=== PATIENT | male | born 1980 | race Caucasian/White ===

== ENCOUNTER 2018-05-15 13:38 | Emergency (ER) | payer SELFPAY | END 2018-05-15 13:50 | disposition left against medical advice (07) | LOC: ER 13:38 | DX: Z53.21 Procedure and treatment not carried out due to patient leaving prior to being seen by health care provider (principal) ==

== ENCOUNTER 2019-10-19 19:45 | Emergency (ER) | payer OTHER ==
[2019-10-19] MEDS ORDERED: ACETAMINOPHEN 325 MG TABLET PO ONE (20:42)
[2019-10-19] MEDS ORDERED: NORMAL SALINE 1000 ML 1,000 ML IV ONE (20:50)
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
[2019-10-19 21:27] LABS: ABSOLUTE BASOPHILS # (AUTO) 0.1 10^3/uL (0.0-0.2); ABSOLUTE EOSINOPHILS # (AUTO) 0.2 10^3/uL (0.0-0.6); ABSOLUTE LYMPHOCYTES (AUTO) 3.1 10^3/uL (0.5-4.7); ABSOLUTE MONOCYTES (AUTO) 1.7 10^3/uL (0.1-1.4); ABSOLUTE NEUT (AUTO) 8.8 10^3/uL (1.7-8.2); BASOPHILS % (AUTO) 0.6 % (0-2); EOSINOPHILS % (AUTO) 1.2 % (0-6); HEMATOCRIT 40.4 % (37.9-51.0); HEMOGLOBIN 14.3 g/dL (13.5-17.0); MEAN CORPUSCULAR HEMOGLOBIN 30.7 pg (27.0-33.4); MEAN CORPUSCULAR HGB CONC 35.4 g/dL (32.0-36.0); MEAN CORPUSCULAR VOLUME 87 fl (80-97); MONOCYTES % (AUTO) 12.4 % (3-13); PLATELET COUNT 190 10^3/uL (150-450); RED BLOOD COUNT 4.66 10^6/uL (4.35-5.55); RED CELL DISTRIBUTION WIDTH 13.9 % (11.5-14.0); SEGMENTED NEUTROPHILS % (AUTO) 63.8 % (42-78); TOTAL CELLS COUNTED % (AUTO) 100 %; WHITE BLOOD COUNT 13.9 10^3/uL (4.0-10.5)
[2019-10-19 21:35] LABS: VENOUS BLOOD BASE EXCESS 1.6 mmol/L; VENOUS BLOOD HCO3 25.1 mmol/L (20-32); VENOUS BLOOD PCO2 35.9 mmHg (35-63); VENOUS BLOOD PH 7.46 (7.30-7.42)
--- NOTE | 2019-10-19 21:39 | RADIOLOGY REPORT (SQ) ---
CLINICAL INDICATION: fever, coarse breath sounds. TECHNIQUE: A single portable AP view was obtained of the chest at 2118 hours. COMPARISON: None. FINDINGS: The cardiomediastinal silhouette is normal. The lungs are grossly clear. No evidence of effusion or pneumothorax. The visualized bones are unremarkable. IMPRESSION: No evidence of active intrathoracic disease.
[2019-10-19 21:49] LABS: APPEARANCE,URINE CLEAR; BILIRUBIN,URINE NEGATIVE (NEGATIVE); COLOR,URINE YELLOW; GLUCOSE, URINE NEGATIVE (NEGATIVE); KETONES,URINE NEGATIVE (NEGATIVE); LEUKOCYTE ESTERASE,URINE NEGATIVE (NEGATIVE); NITRITE,URINE NEGATIVE (NEGATIVE); PROTEIN,URINE NEGATIVE (NEGATIVE); URINE SPECIFIC GRAVITY 1.017
[2019-10-19 21:59] LABS: ALBUMIN 4.6 g/dL (3.5-5.0); ALKALINE PHOSPHATASE 91 U/L (38-126); ANION GAP 10 (5-19); ASPARTATE AMINO TRANSFERASE 31 U/L (17-59); BILIRUBIN,DIRECT 0.1 mg/dL (0.0-0.4); BILIRUBIN,TOTAL 0.9 mg/dL (0.2-1.3); BLOOD UREA NITROGEN 15 mg/dL (7-20); CALCIUM 9.3 mg/dL (8.4-10.2); CARBON DIOXIDE 24 mmol/L (22-30); CHLORIDE 100 mmol/L (98-107); GLUCOSE 103 mg/dL (75-110); POTASSIUM 3.6 mmol/L (3.6-5.0); TOTAL PROTEIN 7.3 g/dL (6.3-8.2)
[2019-10-19 22:08] VITALS: BP 155/97
[2019-10-19] MEDS ORDERED: DOXYCYCLINE HYCLATE 100 MG TABLET PO ONE (22:48)
--- NOTE | 2019-10-19 23:42 | EKG REPORT ---
SEVERITY:- BORDERLINE ECG - SINUS RHYTHM PROBABLE LEFT ATRIAL ABNORMALITY : Confirmed by: Francine Nesbitt MD 19-Oct-2019 23:41:44
== END 2019-10-19 23:15 | disposition home or self-care (01) ==
LOC: ER 19:45
DX: R50.9 Fever, unspecified (principal); M79.10 Myalgia, unspecified site; R53.1 Weakness; F17.210 Nicotine dependence, cigarettes, uncomplicated
CPT/HCPCS: 93005; 99284; 96360; 36415; 87040; 83605; 85025; 80053; 81001; 82803; 71045; 93010; J7030